=== PATIENT | female | born 1965 | race Caucasian/White ===

== ENCOUNTER → 2019-02-02 06:57 | Outpatient (CLI) | payer MEDICARE, OTHER, SELFPAY ==
[2019-02-02 07:27] LABS: Microscopic, Urine URINE MICROSCOPIC (MICROSCOPIC)
[2019-02-02 08:22] LABS: Appearance,Urine CLEAR (Clear); Bilirubin,Urine Negative (Negative); Blood, Urine 3+ (Negative); Color,Urine YELLOW (Yellow); Glucose,Urine (UA) Negative (Negative); Ketones,Urine Negative (Negative); Leukocyte Esterase,Urine TRACE (Negative); Nitrate,Urine Negative (Negative); PH,Urine 7.5 (5.0-8.5); Protein,Urine 2+ (Negative); Specific Gravity, Urine 1.015 (1.005-1.030); Urobilinogen,Urine 0.2 EU/dl (0.2)
[2019-02-02 08:43] LABS: Bacteria,Urine Trace /lpf; WBC,Urine Occasional #/hpf (0-3)
[2019-02-02 08:44] LABS: Squamous Epithelial Cell,Urine Occasional #/hpf (0-5)
[2019-02-02 09:21] LABS: Basophils % 0.2 % (0.1-2.0); Hematocrit 33.8 % (37.0-47.0); Hemoglobin 11.1 g/dL (12.2-16.2); Lymphocytes # 0.1 K/mm3 (0.7-4.5); Lymphocytes % 0.7 % (10-50); Mean Corpuscular HGB Conc 32.9 g/dL (31.8-35.4); Mean Corpuscular Hemoglobin 33.1 pg (27.0-31.2); Mean Corpuscular Volume 100.5 fl (81-99); Mean Platelet Volume 7.2 fl (7.4-10.4); Monocytes # 0.1 K/mm3 (0.1-1.0); Monocytes % 1.5 % (1.7-9.3); Neutrophils # 7.3 K/mm3 (1.8-7.8); Neutrophils % 97.5 % (37.0-80.0); Platelet Count 335 K/mm3 (142-424); Red Blood Count 3.37 M/mm3 (4.20-5.40); Red Cell Distribution Width 15.1 % (11.5-17.5); White Blood Count 7.5 K/mm3 (4.8-10.8)
[2019-02-02 09:32] LABS: Creatinine,Urine Random 107 mg/dL (20-320)
[2019-02-02 09:59] LABS: MANUAL DIFFERENTIAL MANUAL DIFFERENTIAL (MANUAL DIFF)
[2019-02-02 10:03] LABS: Alanine Aminotransferase 20 U/L (12-78); Albumin Level 3.2 gm/dL (3.4-5.0); Alkaline Phosphatase 91 U/L (46-116); Anion Gap 15.4 mEq/L (5-15); Aspartate Amino Transferase 11 U/L (15-37); Bilirubin,Total 0.4 mg/dL (0.2-1.0); Blood Urea Nitrogen 19 mg/dL (7-18); Calcium 8.8 mg/dL (8.5-10.1); Carbon Dioxide 33 mmol/L (21.0-32.0); Chloride 94 mmol/L (98-107); Estimated Glomerular Filt Rate 10 ml/min (>60); GFR (African American) 12 ML/MIN (>60); Globulin 3.2 gm/dl (1.3-3.2); Glucose 164 mg/dL (74-106); Magnesium 2.1 mg/dL (1.4-2.2); Phosphorous 5.4 mg/dL (2.4-4.9); Potassium 4.4 mmoL/L (3.5-5.1); Sodium 138 mmol/L (136-145); Total Protein,Serum 6.4 gm/dL (6.4-8.2)
[2019-02-02 11:15] LABS: Total Protein,Urine Random 283.3 mg/dL (0.0-11.9)
[2019-02-02 11:50] LABS: Lymphocytes % 2 % (10-50); Macrocytosis 1+; Neutrophils % 98 % (42-76); Platelet Estimate Normal; Total Cells Counted 100
[2019-02-02 11:51] LABS: Creatinine,Serum 4.57 mg/dL (0.55-1.02)
[2019-02-05 17:28] LABS: Tacrolimus (FK506), Blood 15.1 ng/mL (2.0-20.0)
== END ==
PROVIDERS: Visit Provider Internal Medicine
DX: Z94.0 Kidney transplant status (principal); R80.9 Proteinuria, unspecified; N39.0 Urinary tract infection, site not specified; E83.40 Disorders of magnesium metabolism, unspecified; E83.30 Disorder of phosphorus metabolism, unspecified
CPT/HCPCS: 36415; 80053; 80197; 81001; 82570; 83735; 84100; 84155; 85007; 85025

== ENCOUNTER → 2019-02-08 10:18 | Outpatient (CLI) | payer MEDICARE, OTHER, SELFPAY ==
[2019-02-08 10:24] LABS: Microscopic, Urine URINE MICROSCOPIC (MICROSCOPIC)
[2019-02-08 10:48] LABS: Appearance,Urine CLEAR (Clear); Bilirubin,Urine Negative (Negative); Blood, Urine 3+ (Negative); Color,Urine YELLOW (Yellow); Glucose,Urine (UA) Negative (Negative); Ketones,Urine Negative (Negative); Leukocyte Esterase,Urine TRACE (Negative); Nitrate,Urine Negative (Negative); Protein,Urine 2+ (Negative); Specific Gravity, Urine 1.015 (1.005-1.030); Urobilinogen,Urine 0.2 EU/dl (0.2)
[2019-02-08 11:09] LABS: RBC,Urine 50-100 #/hpf (0-3)
[2019-02-08 11:10] LABS: Bacteria,Urine Trace /lpf
[2019-02-08 11:18] LABS: Creatinine,Urine Random 72 mg/dL (20-320); Total Protein,Urine Random 109.6 mg/dL (0.0-11.9)
[2019-02-08 12:17] LABS: Alanine Aminotransferase 10 U/L (12-78); Albumin Level 3.4 gm/dL (3.4-5.0); Alkaline Phosphatase 84 U/L (46-116); Aspartate Amino Transferase 9 U/L (15-37); Basophils % 0.5 % (0.1-2.0); Bilirubin,Total 0.4 mg/dL (0.2-1.0); Blood Urea Nitrogen 53 mg/dL (7-18); Calcium 9.1 mg/dL (8.5-10.1); Carbon Dioxide 29 mmol/L (21.0-32.0); Chloride 96 mmol/L (98-107); Eosinophils % 0.4 % (0.1-12.0); Estimated Glomerular Filt Rate 7 ml/min (>60); GFR (African American) 9 ML/MIN (>60); Globulin 3.3 gm/dl (1.3-3.2); Glucose 168 mg/dL (74-106); Hematocrit 32.6 % (37.0-47.0); Hemoglobin 10.4 g/dL (12.2-16.2); Lymphocytes # 0.1 K/mm3 (0.7-4.5); Lymphocytes % 1.4 % (10-50); Magnesium 2.2 mg/dL (1.4-2.2); Mean Corpuscular HGB Conc 31.9 g/dL (31.8-35.4); Mean Corpuscular Hemoglobin 31.8 pg (27.0-31.2); Mean Corpuscular Volume 99.7 fl (81-99); Mean Platelet Volume 7.1 fl (7.4-10.4); Monocytes # 0.1 K/mm3 (0.1-1.0); Monocytes % 1.1 % (1.7-9.3); Neutrophils # 5.2 K/mm3 (1.8-7.8); Neutrophils % 96.6 % (37.0-80.0); Platelet Count 276 K/mm3 (142-424); Red Blood Count 3.27 M/mm3 (4.20-5.40); Red Cell Distribution Width 15.1 % (11.5-17.5); Sodium 138 mmol/L (136-145); Total Protein,Serum 6.7 gm/dL (6.4-8.2); White Blood Count 5.4 K/mm3 (4.8-10.8)
[2019-02-08 12:21] LABS: MANUAL DIFFERENTIAL MANUAL DIFFERENTIAL (MANUAL DIFF)
[2019-02-08 12:22] LABS: Creatinine,Serum 6.09 mg/dL (0.55-1.02)
[2019-02-08 14:24] LABS: Neutrophils % 100 % (42-76); Total Cells Counted 100
[2019-02-08 14:25] LABS: Platelet Estimate Normal; RBC Morphology Normal
[2019-02-13 08:17] LABS: Tacrolimus (FK506), Blood 12.4 ng/mL (2.0-20.0)
== END ==
PROVIDERS: Visit Provider Internal Medicine
DX: N39.0 Urinary tract infection, site not specified (principal); R80.9 Proteinuria, unspecified; E83.40 Disorders of magnesium metabolism, unspecified; E83.30 Disorder of phosphorus metabolism, unspecified; D63.1 Anemia in chronic kidney disease; Z51.81 Encounter for therapeutic drug level monitoring; Z79.899 Other long term (current) drug therapy; Z94.0 Kidney transplant status; N18.9 Chronic kidney disease, unspecified
CPT/HCPCS: 36415; 80053; 80197; 81001; 82570; 83735; 84100; 84155; 85007; 85025

== ENCOUNTER → 2019-02-15 08:56 | Outpatient (CLI) | payer MEDICARE, OTHER, SELFPAY ==
[2019-02-15 09:05] LABS: Microscopic, Urine URINE MICROSCOPIC (MICROSCOPIC)
[2019-02-15 09:51] LABS: Total Protein,Urine Random 103.5 mg/dL (0.0-11.9)
[2019-02-15 09:52] LABS: Appearance,Urine CLEAR (Clear); Bilirubin,Urine Negative (Negative); Blood, Urine 3+ (Negative); Color,Urine YELLOW (Yellow); Glucose,Urine (UA) Negative (Negative); Ketones,Urine Negative (Negative); Leukocyte Esterase,Urine Negative (Negative); Nitrate,Urine Negative (Negative); PH,Urine 5.5 (5.0-8.5); Protein,Urine 1+ (Negative); Specific Gravity, Urine 1.015 (1.005-1.030); Urobilinogen,Urine 0.2 EU/dl (0.2)
[2019-02-15 10:04] LABS: Bacteria,Urine Trace /lpf; Basophils % 0.7 % (0.1-2.0); Eosinophils % 0.9 % (0.1-12.0); Hematocrit 31.5 % (37.0-47.0); Hemoglobin 10.3 g/dL (12.2-16.2); Lymphocytes % 0.8 % (10-50); Mean Corpuscular HGB Conc 32.8 g/dL (31.8-35.4); Mean Corpuscular Hemoglobin 32.5 pg (27.0-31.2); Mean Corpuscular Volume 99.2 fl (81-99); Monocytes % 0.9 % (1.7-9.3); Neutrophils # 3.5 K/mm3 (1.8-7.8); Neutrophils % 96.6 % (37.0-80.0); Platelet Count 196 K/mm3 (142-424); RBC,Urine 50-100 #/hpf (0-3); Red Blood Count 3.18 M/mm3 (4.20-5.40); Red Cell Distribution Width 15.2 % (11.5-17.5); Squamous Epithelial Cell,Urine Occasional #/hpf (0-5); White Blood Count 3.7 K/mm3 (4.8-10.8)
[2019-02-15 10:13] LABS: MANUAL DIFFERENTIAL MANUAL DIFFERENTIAL (MANUAL DIFF)
[2019-02-15 10:49] LABS: Neutrophils % 99 % (42-76); Total Cells Counted 100
[2019-02-15 10:50] LABS: RBC Morphology Normal
[2019-02-15 10:51] LABS: Platelet Estimate Normal
[2019-02-15 11:28] LABS: Potassium 4.1 mmoL/L (3.5-5.1); Sodium 137 mmol/L (136-145)
[2019-02-15 11:29] LABS: Alanine Aminotransferase 10 U/L (12-78); Albumin Level 3.7 gm/dL (3.4-5.0); Albumin/Globulin Ratio 1.1 (1.1-1.8); Alkaline Phosphatase 77 U/L (46-116); Anion Gap 19.1 mEq/L (5-15); Aspartate Amino Transferase 10 U/L (15-37); Bilirubin,Total 0.4 mg/dL (0.2-1.0); Blood Urea Nitrogen 60 mg/dL (7-18); Carbon Dioxide 23 mmol/L (21.0-32.0); Chloride 99 mmol/L (98-107); Estimated Glomerular Filt Rate 10 ml/min (>60); GFR (African American) 13 ML/MIN (>60); Globulin 3.4 gm/dl (1.3-3.2); Glucose 191 mg/dL (74-106); Phosphorous 4.6 mg/dL (2.4-4.9); Total Protein,Serum 7.1 gm/dL (6.4-8.2)
[2019-02-15 11:34] LABS: Creatinine,Serum 4.41 mg/dL (0.55-1.02)
[2019-02-17 08:46] LABS: Creatinine,Urine Random 147 mg/dL (20-320)
[2019-02-17 19:58] LABS: Tacrolimus (FK506), Blood 11.1 ng/mL (2.0-20.0)
== END ==
PROVIDERS: Visit Provider Internal Medicine
DX: Z94.0 Kidney transplant status (principal); Z51.81 Encounter for therapeutic drug level monitoring; Z79.899 Other long term (current) drug therapy; N39.0 Urinary tract infection, site not specified; D63.1 Anemia in chronic kidney disease; R80.9 Proteinuria, unspecified; E83.40 Disorders of magnesium metabolism, unspecified; E83.30 Disorder of phosphorus metabolism, unspecified
CPT/HCPCS: 36415; 80053; 80197; 81001; 82570; 83735; 84100; 84155; 85007; 85025

== ENCOUNTER → 2019-03-01 11:41 | Outpatient (CLI) | payer MEDICARE, OTHER, SELFPAY ==
[2019-03-01 11:51] LABS: Microscopic, Urine URINE MICROSCOPIC (MICROSCOPIC)
[2019-03-01 12:24] LABS: Appearance,Urine CLEAR (Clear); Bilirubin,Urine Negative (Negative); Blood, Urine Negative (Negative); Color,Urine YELLOW (Yellow); Glucose,Urine (UA) Negative (Negative); Ketones,Urine Negative (Negative); Leukocyte Esterase,Urine Negative (Negative); Nitrate,Urine Negative (Negative); PH,Urine 5.5 (5.0-8.5); Protein,Urine TRACE (Negative); Urobilinogen,Urine 0.2 EU/dl (0.2)
[2019-03-01 12:26] LABS: Basophils % 0.3 % (0.1-2.0); Eosinophils % 0.2 % (0.1-12.0); Lymphocytes # 0.1 K/mm3 (0.7-4.5); Lymphocytes % 1.1 % (10-50); Mean Corpuscular HGB Conc 32.3 g/dL (31.8-35.4); Mean Corpuscular Hemoglobin 32.2 pg (27.0-31.2); Mean Corpuscular Volume 99.6 fl (81-99); Mean Platelet Volume 6.9 fl (7.4-10.4); Monocytes # 0.2 K/mm3 (0.1-1.0); Monocytes % 4.3 % (1.7-9.3); Neutrophils # 4.6 K/mm3 (1.8-7.8); Neutrophils % 94.1 % (37.0-80.0); Platelet Count 298 K/mm3 (142-424); Red Blood Count 2.81 M/mm3 (4.20-5.40); Red Cell Distribution Width 15.3 % (11.5-17.5); White Blood Count 4.9 K/mm3 (4.8-10.8)
[2019-03-01 12:27] LABS: MANUAL DIFFERENTIAL MANUAL DIFFERENTIAL (MANUAL DIFF)
[2019-03-01 12:31] LABS: Total Protein,Urine Random 48.5 mg/dL (0.0-11.9)
[2019-03-01 12:46] LABS: Bacteria,Urine Trace /lpf
[2019-03-01 12:52] LABS: Alanine Aminotransferase 9 U/L (12-78); Albumin Level 3.2 gm/dL (3.4-5.0); Albumin/Globulin Ratio 0.9 (1.1-1.8); Alkaline Phosphatase 89 U/L (46-116); Anion Gap 15.8 mEq/L (5-15); Aspartate Amino Transferase 7 U/L (15-37); Bilirubin,Total 0.3 mg/dL (0.2-1.0); Blood Urea Nitrogen 43 mg/dL (7-18); Calcium 8.5 mg/dL (8.5-10.1); Carbon Dioxide 23 mmol/L (21.0-32.0); Chloride 103 mmol/L (98-107); Creatinine,Serum 2.88 mg/dL (0.55-1.02); Estimated Glomerular Filt Rate 17 ml/min (>60); GFR (African American) 21 ML/MIN (>60); Globulin 3.5 gm/dl (1.3-3.2); Glucose 165 mg/dL (74-106); Magnesium 2.5 mg/dL (1.4-2.2); Phosphorous 2.5 mg/dL (2.4-4.9); Potassium 3.8 mmoL/L (3.5-5.1); Sodium 138 mmol/L (136-145); Total Protein,Serum 6.7 gm/dL (6.4-8.2)
[2019-03-01 14:18] LABS: Lymphocytes % 1 % (10-50); Monocytes % 3 % (2-9); Neutrophils % 96 % (42-76); Platelet Estimate Normal; RBC Morphology Normal; Total Cells Counted 100
[2019-03-02 14:03] LABS: Creatinine,Urine Random 110 mg/dL (20-320)
[2019-03-03 18:30] LABS: Tacrolimus (FK506), Blood 3.4 ng/mL (2.0-20.0)
== END ==
PROVIDERS: Visit Provider Internal Medicine
DX: D63.1 Anemia in chronic kidney disease (principal); N39.0 Urinary tract infection, site not specified; R80.9 Proteinuria, unspecified; E83.40 Disorders of magnesium metabolism, unspecified; E83.30 Disorder of phosphorus metabolism, unspecified; Z51.81 Encounter for therapeutic drug level monitoring; Z79.4 Long term (current) use of insulin
CPT/HCPCS: 36415; 80053; 80197; 81001; 82570; 83735; 84100; 84155; 85007; 85025

== ENCOUNTER → 2019-03-08 10:20 | Outpatient (CLI) | payer MEDICARE, OTHER, SELFPAY ==
[2019-03-08 11:11] LABS: Basophils % 0.3 % (0.1-2.0); Hemoglobin 8.8 g/dL (12.2-16.2); Lymphocytes % 7.8 % (10-50); Mean Corpuscular HGB Conc 32.5 g/dL (31.8-35.4); Mean Corpuscular Hemoglobin 30.7 pg (27.0-31.2); Mean Corpuscular Volume 94.4 fl (81-99); Monocytes # 0.1 K/mm3 (0.1-1.0); Monocytes % 11.4 % (1.7-9.3); Neutrophils # 0.3 K/mm3 (1.8-7.8); Neutrophils % 77.5 % (37.0-80.0); Platelet Count 230 K/mm3 (142-424); Red Blood Count 2.86 M/mm3 (4.20-5.40); Red Cell Distribution Width 15.5 % (11.5-17.5)
[2019-03-08 11:20] LABS: INR 1.12 (0.9-1.1); Prothrombin Time 11.5 seconds (9.4-11.8)
[2019-03-08 11:41] LABS: Activated Partial Thrombo Time 37.2 seconds (23.6-34.0)
[2019-03-08 12:18] LABS: White Blood Count 0.4 K/mm3 (4.8-10.8)
[2019-03-08 12:19] LABS: MANUAL DIFFERENTIAL MANUAL DIFFERENTIAL (MANUAL DIFF)
[2019-03-08 13:00] LABS: Alanine Aminotransferase 16 U/L (12-78); Albumin Level 2.7 gm/dL (3.4-5.0); Albumin/Globulin Ratio 0.7 (1.1-1.8); Alkaline Phosphatase 95 U/L (46-116); Anion Gap 21.2 mEq/L (5-15); Aspartate Amino Transferase 7 U/L (15-37); Bilirubin,Total 0.5 mg/dL (0.2-1.0); Blood Urea Nitrogen 36 mg/dL (7-18); Calcium 8.6 mg/dL (8.5-10.1); Carbon Dioxide 17 mmol/L (21.0-32.0); Chloride 102 mmol/L (98-107); Creatinine,Serum 2.59 mg/dL (0.55-1.02); Estimated Glomerular Filt Rate 19 ml/min (>60); GFR (African American) 23 ML/MIN (>60); Glucose 216 mg/dL (74-106); Magnesium 1.6 mg/dL (1.4-2.2); Phosphorous 2.6 mg/dL (2.4-4.9); Sodium 138 mmol/L (136-145); Total Protein,Serum 6.7 gm/dL (6.4-8.2)
[2019-03-08 13:10] LABS: Potassium 2.2 mmoL/L (3.5-5.1)
[2019-03-08 13:28] LABS: Lymphocytes % 4 % (10-50); Monocytes % 10 % (2-9); Neutrophils % 82 % (42-76); Total Cells Counted 50
[2019-03-08 13:29] LABS: Platelet Estimate Normal
[2019-03-10 23:09] LABS: Tacrolimus (FK506), Blood 6.4 ng/mL (2.0-20.0)
[2019-03-10 23:21] LABS: Miscellaneous Test EVEROLIMUS
== END ==
PROVIDERS: Visit Provider Student in an Organized Health Care Education/Training Program
DX: E11.9 Type 2 diabetes mellitus without complications (principal); Z51.81 Encounter for therapeutic drug level monitoring; Z79.01 Long term (current) use of anticoagulants; Z79.899 Other long term (current) drug therapy
CPT/HCPCS: 36415; 80053; 80197; 83735; 84100; 85007; 85025; 85610; 85730

== ENCOUNTER → 2019-03-09 11:01 | Outpatient (CLI) | payer MEDICARE, OTHER, SELFPAY ==
[2019-03-09 11:36] LABS: Basophils % 0.3 % (0.1-2.0); Eosinophils % 4.1 % (0.1-12.0); Hematocrit 27.9 % (37.0-47.0); Hemoglobin 9.3 g/dL (12.2-16.2); Lymphocytes # 0.1 K/mm3 (0.7-4.5); Lymphocytes % 8.7 % (10-50); Mean Corpuscular HGB Conc 33.3 g/dL (31.8-35.4); Mean Corpuscular Hemoglobin 31.2 pg (27.0-31.2); Mean Corpuscular Volume 93.7 fl (81-99); Monocytes # 0.1 K/mm3 (0.1-1.0); Monocytes % 16.7 % (1.7-9.3); Neutrophils # 0.6 K/mm3 (1.8-7.8); Neutrophils % 70.1 % (37.0-80.0); Platelet Count 235 K/mm3 (142-424); Red Blood Count 2.98 M/mm3 (4.20-5.40); Red Cell Distribution Width 15.6 % (11.5-17.5)
[2019-03-09 11:53] LABS: Alanine Aminotransferase 20 U/L (12-78); Albumin Level 2.7 gm/dL (3.4-5.0); Albumin/Globulin Ratio 0.6 (1.1-1.8); Alkaline Phosphatase 113 U/L (46-116); Anion Gap 20.3 mEq/L (5-15); Aspartate Amino Transferase 21 U/L (15-37); Bilirubin,Total 0.5 mg/dL (0.2-1.0); Blood Urea Nitrogen 35 mg/dL (7-18); Calcium 8.9 mg/dL (8.5-10.1); Carbon Dioxide 19 mmol/L (21.0-32.0); Chloride 100 mmol/L (98-107); Creatinine,Serum 2.75 mg/dL (0.55-1.02); Estimated Glomerular Filt Rate 18 ml/min (>60); GFR (African American) 22 ML/MIN (>60); Globulin 4.8 gm/dl (1.3-3.2); Glucose 187 mg/dL (74-106); Sodium 137 mmol/L (136-145); Total Protein,Serum 7.5 gm/dL (6.4-8.2)
[2019-03-09 11:55] LABS: MANUAL DIFFERENTIAL MANUAL DIFFERENTIAL (MANUAL DIFF); White Blood Count 0.8 K/mm3 (4.8-10.8)
[2019-03-09 13:06] LABS: Potassium 2.3 mmoL/L (3.5-5.1)
[2019-03-09 16:14] LABS: Lymphocytes % 4 % (10-50); Monocytes % 20 % (2-9); Neutrophils % 50 % (42-76); Total Cells Counted 50
[2019-03-09 16:15] LABS: Platelet Estimate Normal
[2019-03-09 16:16] LABS: Hypochromasia 1+
== END ==
PROVIDERS: Visit Provider Student in an Organized Health Care Education/Training Program
DX: Z94.0 Kidney transplant status (principal); E11.9 Type 2 diabetes mellitus without complications; D63.1 Anemia in chronic kidney disease
CPT/HCPCS: 36415; 80053; 85007; 85025

== ENCOUNTER → 2019-03-21 09:40 | Outpatient (CLI) | payer MEDICARE, OTHER, SELFPAY ==
[2019-03-21 09:42] LABS: Microscopic, Urine URINE MICROSCOPIC (MICROSCOPIC)
[2019-03-21 10:23] LABS: Appearance,Urine CLEAR (Clear); Bilirubin,Urine Negative (Negative); Blood, Urine TRACE-L (Negative); Color,Urine YELLOW (Yellow); Glucose,Urine (UA) Negative (Negative); Ketones,Urine Negative (Negative); Leukocyte Esterase,Urine Negative (Negative); Nitrate,Urine Negative (Negative); PH,Urine 6.5 (5.0-8.5); Protein,Urine 2+ (Negative); Urobilinogen,Urine 0.2 EU/dl (0.2)
[2019-03-21 11:01] LABS: Basophils % 0.1 % (0.1-2.0); Eosinophils % 0.2 % (0.1-12.0); Hematocrit 25.5 % (37.0-47.0); Lymphocytes # 0.2 K/mm3 (0.7-4.5); Lymphocytes % 1.1 % (10-50); Mean Corpuscular Hemoglobin 30.1 pg (27.0-31.2); Mean Platelet Volume 6.9 fl (7.4-10.4); Monocytes # 0.6 K/mm3 (0.1-1.0); Monocytes % 3.3 % (1.7-9.3); Neutrophils # 15.8 K/mm3 (1.8-7.8); Neutrophils % 95.2 % (37.0-80.0); Platelet Count 470 K/mm3 (142-424); Red Blood Count 2.63 M/mm3 (4.20-5.40); Red Cell Distribution Width 18.9 % (11.5-17.5); White Blood Count 16.6 K/mm3 (4.8-10.8)
[2019-03-21 11:28] LABS: Hemoglobin 7.9 g/dL (12.2-16.2)
[2019-03-21 11:29] LABS: MANUAL DIFFERENTIAL MANUAL DIFFERENTIAL (MANUAL DIFF)
[2019-03-21 11:37] LABS: Bacteria,Urine 1+ /lpf
[2019-03-21 12:20] LABS: Lymphocytes % 1 % (10-50); Monocytes % 4 % (2-9); Neutrophils % 95 % (42-76); Total Cells Counted 100
[2019-03-21 12:22] LABS: Anisocytosis 1+; Macrocytosis 1+; Platelet Estimate Slight Increase
[2019-03-21 15:15] LABS: Creatinine,Urine Random 84 mg/dL (20-320); Total Protein,Urine Random 93.7 mg/dL (0.0-11.9)
[2019-03-21 15:37] LABS: Alanine Aminotransferase 25 U/L (12-78); Albumin Level 2.9 gm/dL (3.4-5.0); Albumin/Globulin Ratio 0.9 (1.1-1.8); Alkaline Phosphatase 69 U/L (46-116); Anion Gap 15.6 mEq/L (5-15); Aspartate Amino Transferase 15 U/L (15-37); Bilirubin,Total 0.3 mg/dL (0.2-1.0); Blood Urea Nitrogen 32 mg/dL (7-18); Carbon Dioxide 26 mmol/L (21.0-32.0); Chloride 102 mmol/L (98-107); Creatinine,Serum 1.89 mg/dL (0.55-1.02); Estimated Glomerular Filt Rate 28 ml/min (>60); GFR (African American) 34 ML/MIN (>60); Globulin 3.2 gm/dl (1.3-3.2); Glucose 79 mg/dL (74-106); Magnesium 1.5 mg/dL (1.4-2.2); Phosphorous 3.4 mg/dL (2.4-4.9); Potassium 3.6 mmoL/L (3.5-5.1); Sodium 140 mmol/L (136-145); Total Protein,Serum 6.1 gm/dL (6.4-8.2)
== END ==
PROVIDERS: Visit Provider Internal Medicine
DX: Z94.0 Kidney transplant status (principal); R82.90 Unspecified abnormal findings in urine
CPT/HCPCS: 36415; 80053; 80197; 81001; 82570; 83735; 84100; 84155; 85007; 85025; 87086

== ENCOUNTER → 2019-03-30 08:33 | Outpatient (CLI) | payer MEDICARE, OTHER, SELFPAY ==
[2019-03-30 08:37] VITALS: BMI 22.8
[2019-03-30 10:08] LABS: Hematocrit 14.6 % (37.0-47.0)
[2019-03-30 10:09] LABS: Hemoglobin 4.2 g/dL (12.2-16.2)
--- NOTE | 2019-03-30 11:00 | PC.NURSE ---
0830-pt in infusion to receive type and cross for 2 units of PRBC's. multiple nurses attempted to stick pt for iv and unsuccessful even with ultrasound. lab able to get enough blood with butterfly needle for type and cross and comparison h/h. 0900-per sunny lua tech pt hgb 4.2 and hct 14.6. 1030-called [facility] physicians with the transplant services kidney disease program spoke with lucrecia lacey, told her the dilemma said she would call back after she spoke with dr. brianne calles. 1035-lucrecia lacey, rn called back per dr. brianne calles to have pt sent to ed for iv access or central line and transfuse one unit of prbc's, then transfer pt to [facility] in [place]. 1040-v/s bp 163/73 hr 80 rr 18 o2 sat 100% 1100-transfer pt to ed per wheelchair with jane bray. gave report to claudia bauer rn.
== END ==
PROVIDERS: Visit Provider Student in an Organized Health Care Education/Training Program
DX: Z94.0 Kidney transplant status; D63.1 Anemia in chronic kidney disease
CPT/HCPCS: 85014; 85018; 86850; G0463

== ENCOUNTER → 2019-04-06 09:07 | Outpatient (CLI) | payer MEDICARE, OTHER, SELFPAY ==
[2019-04-06 09:48] LABS: Basophils % 0.2 % (0.1-2.0); Eosinophils # 0.2 K/mm3 (0.0-0.4); Eosinophils % 3.2 % (0.1-12.0); Lymphocytes # 0.1 K/mm3 (0.7-4.5); Lymphocytes % 1.2 % (10-50); Mean Corpuscular HGB Conc 31.1 g/dL (31.8-35.4); Mean Corpuscular Hemoglobin 32.6 pg (27.0-31.2); Mean Corpuscular Volume 104.8 fl (81-99); Monocytes # 0.2 K/mm3 (0.1-1.0); Monocytes % 2.6 % (1.7-9.3); Neutrophils % 92.8 % (37.0-80.0); Platelet Count 202 K/mm3 (142-424); Red Blood Count 2.24 M/mm3 (4.20-5.40); Red Cell Distribution Width 18.9 % (11.5-17.5); White Blood Count 7.6 K/mm3 (4.8-10.8)
[2019-04-06 10:19] LABS: Hematocrit 23.5 % (37.0-47.0); Hemoglobin 7.3 g/dL (12.2-16.2)
[2019-04-06 10:20] LABS: MANUAL DIFFERENTIAL MANUAL DIFFERENTIAL (MANUAL DIFF)
[2019-04-06 10:39] LABS: Alanine Aminotransferase 17 U/L (12-78); Albumin Level 2.9 gm/dL (3.4-5.0); Albumin/Globulin Ratio 1.1 (1.1-1.8); Alkaline Phosphatase 60 U/L (46-116); Anion Gap 14.5 mEq/L (5-15); Aspartate Amino Transferase 5 U/L (15-37); Bilirubin,Total 0.4 mg/dL (0.2-1.0); Blood Urea Nitrogen 26 mg/dL (7-18); Calcium 8.1 mg/dL (8.5-10.1); Carbon Dioxide 23 mmol/L (21.0-32.0); Chloride 106 mmol/L (98-107); Estimated Glomerular Filt Rate 31 ml/min (>60); GFR (African American) 38 ML/MIN (>60); Globulin 2.7 gm/dl (1.3-3.2); Glucose 196 mg/dL (74-106); Magnesium 1.8 mg/dL (1.4-2.2); Phosphorous 2.4 mg/dL (2.4-4.9); Potassium 5.5 mmoL/L (3.5-5.1); Sodium 138 mmol/L (136-145); Total Protein,Serum 5.6 gm/dL (6.4-8.2)
[2019-04-06 13:49] LABS: Eosinophils % 3 % (0-3); Lymphocytes % 1 % (10-50); Monocytes % 2 % (2-9); Myelocytes % 4 (0-1); Neutrophils % 63 % (42-76); Nucleated Red Blood Cells 1; Total Cells Counted 100
[2019-04-06 13:56] LABS: Hypochromasia 2+; Macrocytosis 2+
[2019-04-06 13:57] LABS: Anisocytosis 2+; Platelet Estimate Normal; Tear Drop Cells 1+
[2019-04-08 18:20] LABS: Miscellaneous Test EVEROLIMUS
[2019-04-09 17:29] LABS: Tacrolimus (FK506), Blood 5.3 ng/mL (2.0-20.0)
== END ==
PROVIDERS: Visit Provider Internal Medicine
DX: D63.1 Anemia in chronic kidney disease (principal); Z94.0 Kidney transplant status; E83.40 Disorders of magnesium metabolism, unspecified; E83.30 Disorder of phosphorus metabolism, unspecified
CPT/HCPCS: 36415; 80053; 80197; 83735; 84100; 85007; 85025

== ENCOUNTER → 2019-04-07 08:35 | Outpatient (CLI) | payer MEDICARE, OTHER, SELFPAY ==
[2019-04-07 08:38] LABS: Microscopic, Urine URINE MICROSCOPIC (MICROSCOPIC)
[2019-04-07 09:01] LABS: Appearance,Urine CLEAR (Clear); Bilirubin,Urine Negative (Negative); Blood, Urine Negative (Negative); Color,Urine YELLOW (Yellow); Glucose,Urine (UA) 2+ (Negative); Ketones,Urine Negative (Negative); Leukocyte Esterase,Urine Negative (Negative); Nitrate,Urine Negative (Negative); Protein,Urine Negative (Negative); Urobilinogen,Urine 0.2 EU/dl (0.2)
[2019-04-07 09:42] LABS: Bacteria,Urine Trace /lpf; Squamous Epithelial Cell,Urine Occasional #/hpf (0-5)
[2019-04-07 09:52] LABS: Creatinine,Urine Random 35 mg/dL (20-320); Total Protein,Urine Random 29.4 mg/dL (0.0-11.9)
== END ==
PROVIDERS: Visit Provider Internal Medicine
DX: R80.9 Proteinuria, unspecified (principal); N39.0 Urinary tract infection, site not specified; D63.1 Anemia in chronic kidney disease; Z94.0 Kidney transplant status
CPT/HCPCS: 81001; 82570; 84155

== ENCOUNTER → 2019-04-13 09:04 | Outpatient (CLI) | payer MEDICARE, OTHER, SELFPAY ==
[2019-04-13 09:11] LABS: Microscopic, Urine URINE MICROSCOPIC (MICROSCOPIC)
[2019-04-13 10:09] LABS: Appearance,Urine CLEAR (Clear); Bilirubin,Urine Negative (Negative); Blood, Urine Negative (Negative); Color,Urine YELLOW (Yellow); Glucose,Urine (UA) 3+ (Negative); Ketones,Urine Negative (Negative); Leukocyte Esterase,Urine Negative (Negative); Nitrate,Urine Negative (Negative); Protein,Urine TRACE (Negative); Urobilinogen,Urine 0.2 EU/dl (0.2)
[2019-04-13 10:22] LABS: Bacteria,Urine Trace /lpf
[2019-04-13 10:31] LABS: Creatinine,Urine Random 39 mg/dL (20-320); Total Protein,Urine Random 27.2 mg/dL (0.0-11.9)
[2019-04-13 10:42] LABS: Eosinophils # 0.1 K/mm3 (0.0-0.4); Eosinophils % 21.9 % (0.1-12.0); Hematocrit 28.3 % (37.0-47.0); Hemoglobin 8.6 g/dL (12.2-16.2); Lymphocytes # 0.1 K/mm3 (0.7-4.5); Mean Corpuscular HGB Conc 30.5 g/dL (31.8-35.4); Mean Corpuscular Hemoglobin 32.7 pg (27.0-31.2); Mean Corpuscular Volume 107.1 fl (81-99); Monocytes % 7.9 % (1.7-9.3); Neutrophils # 0.2 K/mm3 (1.8-7.8); Neutrophils % 51.2 % (37.0-80.0); Platelet Count 231 K/mm3 (142-424); Red Blood Count 2.64 M/mm3 (4.20-5.40); Red Cell Distribution Width 17.6 % (11.5-17.5)
[2019-04-13 11:15] LABS: White Blood Count 0.4 K/mm3 (4.8-10.8)
[2019-04-13 11:17] LABS: MANUAL DIFFERENTIAL MANUAL DIFFERENTIAL (MANUAL DIFF)
[2019-04-13 11:21] LABS: Alanine Aminotransferase 20 U/L (12-78); Albumin Level 3.1 gm/dL (3.4-5.0); Albumin/Globulin Ratio 1.1 (1.1-1.8); Alkaline Phosphatase 76 U/L (46-116); Anion Gap 14.8 mEq/L (5-15); Aspartate Amino Transferase 10 U/L (15-37); Bilirubin,Total 0.6 mg/dL (0.2-1.0); Blood Urea Nitrogen 23 mg/dL (7-18); Calcium 8.7 mg/dL (8.5-10.1); Carbon Dioxide 24 mmol/L (21.0-32.0); Chloride 106 mmol/L (98-107); Creatinine,Serum 1.65 mg/dL (0.55-1.02); Estimated Glomerular Filt Rate 33 ml/min (>60); GFR (African American) 39 ML/MIN (>60); Globulin 2.8 gm/dl (1.3-3.2); Glucose 83 mg/dL (74-106); Magnesium 1.7 mg/dL (1.4-2.2); Phosphorous 2.4 mg/dL (2.4-4.9); Potassium 5.8 mmoL/L (3.5-5.1); Sodium 139 mmol/L (136-145); Total Protein,Serum 5.9 gm/dL (6.4-8.2)
[2019-04-13 13:50] LABS: Eosinophils % 22 % (0-3); Hypochromasia 1+; Lymphocytes % 26 % (10-50); Macrocytosis 2+; Monocytes % 2 % (2-9); Myelocytes % 2 (0-1); Neutrophils % 16 % (42-76); Platelet Estimate Normal; Total Cells Counted 50
[2019-04-16 17:26] LABS: Tacrolimus (FK506), Blood 4.1 ng/mL (2.0-20.0)
== END ==
PROVIDERS: Visit Provider Internal Medicine
DX: Z79.899 Other long term (current) drug therapy (principal); Z94.0 Kidney transplant status; D63.1 Anemia in chronic kidney disease; R80.9 Proteinuria, unspecified; E83.40 Disorders of magnesium metabolism, unspecified; E83.30 Disorder of phosphorus metabolism, unspecified; Z51.81 Encounter for therapeutic drug level monitoring
CPT/HCPCS: 36415; 80053; 80197; 81001; 82570; 83735; 84100; 84155; 85007; 85025

== ENCOUNTER 2019-04-16 09:48 | Outpatient (CLI) | payer MEDICARE, SELFPAY ==
[2019-04-16 10:25] VITALS: BP 118/64; PULSE 77; RESP 18; TEMP 36.9; O2SAT 97
[2019-04-16 10:30] VITALS: BP 118/65; PULSE 70; RESP 18; TEMP 36.9; O2SAT 97
== END 2019-04-16 11:24 | disposition home or self-care (01) ==
LOC: INF 09:53
PROVIDERS: Visit Provider Internal Medicine
DX: Z94.0 Kidney transplant status (principal); E83.40 Disorders of magnesium metabolism, unspecified; E83.30 Disorder of phosphorus metabolism, unspecified; D63.1 Anemia in chronic kidney disease; R80.9 Proteinuria, unspecified; N39.0 Urinary tract infection, site not specified; Z51.81 Encounter for therapeutic drug level monitoring; Z79.899 Other long term (current) drug therapy
CPT/HCPCS: 96372; J1442

== ENCOUNTER → 2019-04-17 10:07 | Outpatient (CLI) | payer MEDICARE, OTHER, SELFPAY ==
[2019-04-17 10:30] VITALS: BP 94/58; PULSE 79; RESP 16; TEMP 36.4; O2SAT 100; BMI 21.2
[2019-04-17 10:58] VITALS: BP 98/68; PULSE 71; RESP 16; TEMP 36.6; O2SAT 100
== END ==
PROVIDERS: PCP Internal Medicine; Visit Provider Internal Medicine
DX: Z94.0 Kidney transplant status (principal); D63.1 Anemia in chronic kidney disease; N39.0 Urinary tract infection, site not specified
CPT/HCPCS: 96372; J1442

== ENCOUNTER 2019-04-18 10:15 | Outpatient (CLI) | payer MEDICARE, OTHER, SELFPAY ==
[2019-04-18 10:15] VITALS: BMI 21.2
[2019-04-18 10:54] LABS: Basophils % 1.5 % (0.1-2.0); Eosinophils # 0.1 K/mm3 (0.0-0.4); Eosinophils % 7.1 % (0.1-12.0); Hematocrit 31.7 % (37.0-47.0); Hemoglobin 9.9 g/dL (12.2-16.2); Lymphocytes # 0.1 K/mm3 (0.7-4.5); Lymphocytes % 5.2 % (10-50); Mean Corpuscular HGB Conc 31.3 g/dL (31.8-35.4); Mean Corpuscular Hemoglobin 32.7 pg (27.0-31.2); Mean Corpuscular Volume 104.3 fl (81-99); Monocytes # 0.1 K/mm3 (0.1-1.0); Monocytes % 9.6 % (1.7-9.3); Neutrophils # 0.7 K/mm3 (1.8-7.8); Neutrophils % 76.5 % (37.0-80.0); Platelet Count 307 K/mm3 (142-424); Red Blood Count 3.04 M/mm3 (4.20-5.40); Red Cell Distribution Width 16.8 % (11.5-17.5)
[2019-04-18 10:56] LABS: White Blood Count 0.9 K/mm3 (4.8-10.8)
[2019-04-18 10:57] LABS: MANUAL DIFFERENTIAL MANUAL DIFFERENTIAL (MANUAL DIFF)
[2019-04-18 10:58] VITALS: BP 132/68; PULSE 77; RESP 18; TEMP 36.4; O2SAT 100
[2019-04-18 11:06] LABS: Alanine Aminotransferase 23 U/L (12-78); Albumin Level 2.6 gm/dL (3.4-5.0); Albumin/Globulin Ratio 0.7 (1.1-1.8); Alkaline Phosphatase 73 U/L (46-116); Anion Gap 15.8 mEq/L (5-15); Aspartate Amino Transferase 11 U/L (15-37); Bilirubin,Total 0.6 mg/dL (0.2-1.0); Blood Urea Nitrogen 40 mg/dL (7-18); Calcium 8.7 mg/dL (8.5-10.1); Carbon Dioxide 21 mmol/L (21.0-32.0); Chloride 105 mmol/L (98-107); Creatinine Clearance Estimated 35 mL/min (50-200); Creatinine,Serum 1.89 mg/dL (0.55-1.02); Estimated Glomerular Filt Rate 28 ml/min (>60); GFR (African American) 34 ML/MIN (>60); Globulin 3.5 gm/dl (1.3-3.2); Glucose 97 mg/dL (74-106); Magnesium 1.5 mg/dL (1.4-2.2); Potassium 4.8 mmoL/L (3.5-5.1); Sodium 137 mmol/L (136-145); Total Protein,Serum 6.1 gm/dL (6.4-8.2)
[2019-04-18 11:13] LABS: Phosphorous 1.6 mg/dL (2.4-4.9)
[2019-04-18 12:01] LABS: Eosinophils % 10 % (0-3); Lymphocytes % 6 % (10-50); Monocytes % 8 % (2-9); Myelocytes % 22 (0-1); Neutrophils % 6 % (42-76); Total Cells Counted 50
[2019-04-18 12:03] LABS: Hypochromasia 2+; Macrocytosis 2+
[2019-04-18 12:04] LABS: Anisocytosis 1+; Platelet Estimate Slight Increase
[2019-04-20 14:08] LABS: Tacrolimus (FK506), Blood 8.7 ng/mL (2.0-20.0)
== END 2019-04-18 11:00 | disposition home or self-care (01) ==
LOC: INF 10:18
PROVIDERS: Visit Provider Internal Medicine
DX: Z94.0 Kidney transplant status (principal); D63.1 Anemia in chronic kidney disease; R80.9 Proteinuria, unspecified; N39.0 Urinary tract infection, site not specified; E83.40 Disorders of magnesium metabolism, unspecified; E83.30 Disorder of phosphorus metabolism, unspecified; Z79.899 Other long term (current) drug therapy; Z51.81 Encounter for therapeutic drug level monitoring
CPT/HCPCS: 36415; 80053; 80197; 83735; 84100; 85007; 85025; 96372; J1442

== ENCOUNTER → 2019-04-19 11:31 | Outpatient (CLI) | payer MEDICARE, OTHER, SELFPAY ==
[2019-04-19 11:35] LABS: Microscopic, Urine URINE MICROSCOPIC (MICROSCOPIC)
[2019-04-19 13:04] LABS: Appearance,Urine CLEAR (Clear); Bilirubin,Urine Negative (Negative); Blood, Urine Negative (Negative); Color,Urine YELLOW (Yellow); Glucose,Urine (UA) 3+ (Negative); Ketones,Urine Negative (Negative); Leukocyte Esterase,Urine Negative (Negative); Nitrate,Urine Negative (Negative); Protein,Urine Negative (Negative); Urobilinogen,Urine 0.2 EU/dl (0.2)
[2019-04-19 13:21] LABS: Bacteria,Urine Trace /lpf
[2019-04-19 14:10] LABS: Creatinine,Urine Random 40 mg/dL (20-320); Total Protein,Urine Random 25.3 mg/dL (0.0-11.9)
== END ==
PROVIDERS: Visit Provider Internal Medicine
DX: Z94.0 Kidney transplant status (principal); D63.1 Anemia in chronic kidney disease; R80.9 Proteinuria, unspecified; N39.0 Urinary tract infection, site not specified; E83.40 Disorders of magnesium metabolism, unspecified; E83.30 Disorder of phosphorus metabolism, unspecified; Z79.899 Other long term (current) drug therapy; Z51.81 Encounter for therapeutic drug level monitoring
CPT/HCPCS: 81001; 82570; 84155

== ENCOUNTER 2019-04-23 16:10 | Emergency (ER) | payer MEDICARE, SELFPAY ==
[2019-04-23] VITALS (9 sets, daily range): BP systolic 98–127; BP diastolic 45–83; PULSE 72–95; RESP 16–18; TEMP 36.6–36.9; O2SAT 95–100; BMI 21.2
--- NOTE | 2019-04-23 16:13 | CT_ITS ---
CT abdomen pelvis wo con CLINICAL INDICATION: Posttraumatic pain, fall with injury and pain ITS.REASON: trauma ORDERING PHYSICIAN: Kenneth Lemus MD PATIENT AGE: 53 years COMPARISON: 07/30/2018 TECHNIQUE: Axial images obtained with sagittal and coronal reformats. All CT scans at the facility use one or more dose reduction, viz: automated exposure control, ma/kV adjustment per patient size (including targeted exams where dose is matched to indication, i.e. head), or iterative reconstruction technique. PROCEDURE: Oral Contrast: None IV Contrast: None . FINDINGS: Solid organ evaluation is limited without IV contrast. Groundglass densities noted in the right lower lobe and may be due to pneumonitis. Subpleural opacity is present in the right lower lobe laterally measuring 2.5 x 1 cm. Oval peripheral consolidation is present in the left lower lobe measuring 2.8 x 1.6 and 1.5 cm as well as additional parenchymal opacity left lower lobe posteriorly 1.5 cm. There are other densities in the left lower lobe posteriorly posterior costophrenic sulcus measuring 10 mm. Small cystic areas noted in the right middle lobe with fibrotic changes peripheral to this region. The liver, spleen, and pancreas have an unremarkable unenhanced appearance. Postcholecystectomy change There are postsurgical changes of the stomach with thickening of the body and cardia portion of the stomach. There is been prior gastric sleeve surgery. Left adrenal gland is somewhat prominent as before. There is diffuse vascular calcification. There is a horseshoe kidney. No hydronephrosis or ureteral calculi. There are postsurgical changes of the cecum and ascending colon. The appendix is not identified presumed surgically absent. There is a right lower quadrant renal transplant in the right iliac fossa which has been placed since 07/30/2018. No pelvic mass is evident. Fluid density is present in the perianal region on both sides right more so than left measuring up to 4 cm x 3 cm on the right and 2 x 1.57 m on the left. 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 IMPRESSION: 1. Limited study, evaluation of the abdomen and pelvis without IV contrast. 2. Bilateral lower lung zone parenchymal opacities. There is diffuse groundglass density in the right lower lobe consistent with pneumonitis. Focal subpleural opacity in the right lower lobe focal parenchymal opacities in the left lower lobe are present and could be inflammatory/infectious or neoplastic/metastatic disease. 3. Diffuse vascular calcifications with multiple postsurgical changes and a horseshoe kidney. Prior right pelvic renal transplant 4. There is fluid density in the perianal region on both sides and could represent perianal cysts or even abscess. Please correlate with clinical findings.
--- NOTE | 2019-04-23 16:14 | CT_ITS ---
CT lumbar spine wo con INDICATION: Low back pain following injury ITS.REASON: trauma ORDERING PHYSICIAN: Kenneth Lemus MD PATIENT AGE: 53 years COMPARISON: None TECHNIQUE: Axial images obtained with sagittal and coronal reformats. All CT scans at the facility use one or more dose reduction, viz: automated exposure control, ma/kV adjustment per patient size (including targeted exams where dose is matched to indication, i.e. head), or iterative reconstruction technique. FINDINGS: Normal alignment. No fracture or dislocation. No lytic or blastic change. Mild bulging disc L4-L5 and L5-S1 with mild facet arthritic changes at L5-S1. There is sclerosis of the SI joints on both sides and there are mild changes in the hips. There are multiple other findings within the abdomen and pelvis which are described in the CT abdomen pelvis performed at same setting. Please see that exam for description. IMPRESSION: 1. No acute fracture. 2. Mild lumbar spondylosis
--- NOTE | 2019-04-23 16:15 | [facility].EDGENADL ---
ED Disposition <Kenneth Lemus - Last Filed: 04/23/19 19:39> Condition on Discharge: Serious - Critical Care Critical Care Time: Yes Total Critical Care Time: 45 Vital system(s) involved:: Metabolic Failure My critical care processes included: Assessment & monitoring of V/S, Initial and Re-exams, Data Review/Interpretation, Coordinating Care, Medication Orders and management, Documentation <Sam Andrews - Last Filed: 04/24/19 00:38> Clinical Impression: Acute kidney injury, Hyperkalemia, Hyperglycemia, Perianal cyst, Lung mass Altered mental status Qualifiers: Altered mental status type: unspecified Qualified Code(s): R41.82 - Altered mental status, unspecified Fall Qualifiers: Encounter type: initial encounter Qualified Code(s): W19.XXXA - Unspecified fall, initial encounter Contusion of right hip Qualifiers: Encounter type: initial encounter Qualified Code(s): S70.01XA - Contusion of right hip, initial encounter Disposition: Xfer Short-Term Hosp Referrals: Provider,Referral, MD [Primary Care Provider] - Forms: Transfer Record - ED Attestation: On 04/23/19, the high probability of a clinically significant, sudden or life threatening deterioration of the following system(s) required my full and direct attention, intervention and personal management. The time I documented below is in addition to time spent performing reported procedures but includes the following listed in this critical care notation. Medical Decision Making - Lab Data Result diagrams: 04/23/19 17:15 04/23/19 17:15 <Kenneth Lemus - Last Filed: 04/23/19 19:39> - Bar Inquiry Pt receiving controlled substance: No - Lab Data Result diagrams: 04/23/19 17:15 04/23/19 22:30 - CT Data CT Scan: Head Time Received: 22:[address] Reviewed: Yes: I have reviewed the patient's CT results - Physician Consults Physician Consulted: Galindo Time: 21:45 Reason -: Admission Comment/Response: Prefers that patient be transferred to higher level of care. Discussed with patient and . They prefer [facility] in [place]. Additional Consult: [facility] transplant [facility] Time: 22:15 Reason -: Transfer to another facilty Comment/Response: Accepts patient. Advised that we will not be able to have ground transport until 8 AM. Discussed transport mechanism. He does not feel helicopter is needed at this point, but agrees with transfer for admission there. He is okay with 8 AM transfer. Advised that I will recheck labs to ensure that potassium and blood sugar are improving. Additional Consult: [facility] Time: 23:13 Reason -: Transfer to another facilty Comment/Response: Notified of worsening potassium and renal function despite treatment. Will fly by helicopter to [facility]. He accepts transfer. <Sam Andrews - Last Filed: 04/24/19 00:38> Vital Signs: 04/23/19 16:11 04/23/19 17:10 04/23/19 17:38 Temperature 97.9 F Temperature Source Oral Pulse Rate Pulse Rate [Left Radial] 85 84 72 Respiratory Rate 18 Blood Pressure Blood Pressure [Right Arm] 113/58 L 113/58 L 127/75 Blood Pressure Mean [Right Arm] 76 76 92 Blood Pressure Source [Right Arm] Automatic Cuff Blood Pressure Position [Right Arm] Sitting 02 Sat by Pulse Oximetry 100 95 99 Oxygen Delivery Method Room Air 04/23/19 18:00 04/23/19 21:16 04/23/19 21:17 Temperature Temperature Source Pulse Rate 78 78 Pulse Rate [Left Radial] 76 Respiratory Rate Blood Pressure Blood Pressure [Right Arm] 124/68 Blood Pressure Mean [Right Arm] 86 Blood Pressure Source [Right Arm] Blood Pressure Position [Right Arm] 02 Sat by Pulse Oximetry 96 Oxygen Delivery Method 04/23/19 21:56 04/23/19 22:00 04/23/19 23:54 Temperature 98.0 F 98.4 F Temperature Source Oral Oral Pulse Rate Pulse Rate [Left Radial] 86 85 95 H Respiratory Rate 16 17 16 Blood Pressure Blood Pressure [Right Arm] 98/45 L 114/82 12
--- NOTE | 2019-04-23 16:39 | PC.NURSE ---
pt gone to ct
[2019-04-23 17:25] LABS: Basophils # 0.1 K/mm3 (0-0.2); Basophils % 2.4 % (0.1-2.0); Eosinophils % 0.8 % (0.1-12.0); Hematocrit 31.7 % (37.0-47.0); Hemoglobin 9.9 g/dL (12.2-16.2); Lymphocytes # 0.1 K/mm3 (0.7-4.5); Lymphocytes % 2.6 % (10-50); Mean Corpuscular HGB Conc 31.1 g/dL (31.8-35.4); Mean Corpuscular Hemoglobin 31.3 pg (27.0-31.2); Mean Corpuscular Volume 100.8 fl (81-99); Mean Platelet Volume 7.5 fl (7.4-10.4); Monocytes # 0.1 K/mm3 (0.1-1.0); Monocytes % 2.7 % (1.7-9.3); Neutrophils # 3.7 K/mm3 (1.8-7.8); Neutrophils % 91.6 % (37.0-80.0); Platelet Count 279 K/mm3 (142-424); Red Blood Count 3.15 M/mm3 (4.20-5.40)
[2019-04-23 17:28] LABS: MANUAL DIFFERENTIAL MANUAL DIFFERENTIAL (MANUAL DIFF)
[2019-04-23 17:30] LABS: Amphetamine/Metha Screen,Urine Negative ng/mL (<1000); Barbiturates Screen,Urine Negative ng/mL (<200); Benzodiazepines Screen,Urine Negative ng/mL (<200); Cannabinoid Screen,Urine Negative ng/mL (<50); Cocaine Screen,Urine Negative ng/mL (<300); Methadone Screen,Urine Negative ng/mL (<300); Opiate Screen,Urine Positive ng/mL (<300); Phencyclidine Screen,Urine Negative ng/mL (<25)
[2019-04-23 17:44] LABS: Alanine Aminotransferase 46 U/L (12-78); Albumin Level 1.8 gm/dL (3.4-5.0); Albumin/Globulin Ratio 0.5 (1.1-1.8); Alkaline Phosphatase 76 U/L (46-116); Anion Gap 17.1 mEq/L (5-15); Aspartate Amino Transferase 53 U/L (15-37); Bilirubin,Total 0.6 mg/dL (0.2-1.0); Blood Urea Nitrogen 66 mg/dL (7-18); Calcium 7.7 mg/dL (8.5-10.1); Carbon Dioxide 20 mmol/L (21.0-32.0); Chloride 94 mmol/L (98-107); Creatinine Clearance Estimated 25 mL/min (50-200); Creatinine,Serum 2.59 mg/dL (0.55-1.02); Estimated Glomerular Filt Rate 19 ml/min (>60); GFR (African American) 23 ML/MIN (>60); Globulin 3.4 gm/dl (1.3-3.2); Sodium 125 mmol/L (136-145); Total Protein,Serum 5.2 gm/dL (6.4-8.2); Troponin I < 0.02 ng/ml (0.00-0.06)
[2019-04-23 17:46] LABS: Ethyl Alcohol 0 mg/dL (0-99); Glucose 431 mg/dL (74-106); Potassium 6.1 mmoL/L (3.5-5.1)
--- NOTE | 2019-04-23 17:46 | PC.NURSE ---
notified of critical labs
[2019-04-23 17:56] LABS: Lymphocytes % 18 % (10-50); Monocytes % 21 % (2-9); Neutrophils % 49 % (42-76); Nucleated Red Blood Cells 1; Platelet Estimate Normal; Total Cells Counted 100
[2019-04-23 17:57] LABS: Helmet Cells 1+; Tear Drop Cells 1+
--- NOTE | 2019-04-23 18:18 | XR_ITS ---
XR chest portable HISTORY: Abnormal CT scan, pneumonia ITS.REASON: r/o pneumonia ORDERING PHYSICIAN: Kenneth Lemus MD PATIENT AGE: 53 years COMPARISON: None FINDINGS: The cardiomediastinal silhouette and pulmonary vascularity are within normal limits. There is an oval area of increased density in the left lower lung zone measuring 2.8 x 2 cm corresponding to one of the areas of parenchymal opacity on the CT scan of the abdomen. There is an additional 8 mm nodule in the left midlung laterally. The patchy groundglass density in the right lower lobe is below limits of resolution for the chest radiograph. There are degenerative changes in the shoulders. IMPRESSION: 2.8 x 2 cm oval opacity left lower lobe which could be due to an area of pneumonia or neoplasm. Follow-up chest CT suggested suggested following adequate treatment for pneumonia.
--- NOTE | 2019-04-23 20:25 | CT_ITS ---
CT head/brain wo con HISTORY: Altered mental status, altered level of consciousness, confusion largest dimension ITS.REASON: AMS ORDERING PHYSICIAN: Sam Andrews MD PATIENT AGE: 53 years COMPARISON: None TECHNIQUE: Axial images obtained without contrast. Brain and bone windows reviewed. All CT scans at the facility use one or more dose reduction, viz: automated exposure control, ma/kV adjustment per patient size (including targeted exams where dose is matched to indication, i.e. head), or iterative reconstruction technique. FINDINGS: No midline shift, mass effect, intracranial hemorrhage, hydrocephalus, or extra-axial fluid collection is evident. The calvarium has an unremarkable appearance. No mastoid effusion. No sinus air-fluid levels.. There is mild mucosal thickening of left maxillary sinus IMPRESSION: No acute intracranial findings
--- NOTE | 2019-04-23 20:28 | XR_ITS ---
XR hip RT 2-3V w/pelvis HISTORY: Pain following injury ITS.REASON: fall ORDERING PHYSICIAN: Sam Andrews MD PATIENT AGE: 53 years COMPARISON: None FINDINGS: No fracture or dislocation is evident. Minimal osteoarthritic changes are noted. Surgical clips are present in the right hemipelvis and there is a vascular stent in the thigh. IMPRESSION: No acute finding.
[2019-04-23 20:50] LABS: Anion Gap 17.2 mEq/L (5-15); Blood Urea Nitrogen 69 mg/dL (7-18); Calcium 8.1 mg/dL (8.5-10.1); Carbon Dioxide 21 mmol/L (21.0-32.0); Chloride 94 mmol/L (98-107); Creatine Kinase 94 U/L (26-192); Creatinine Clearance Estimated 26 mL/min (50-200); Creatinine,Serum 2.55 mg/dL (0.55-1.02); Estimated Glomerular Filt Rate 20 ml/min (>60); GFR (African American) 24 ML/MIN (>60); Glucose 398 mg/dL (74-106); Sodium 126 mmol/L (136-145)
[2019-04-23 20:52] LABS: Potassium 6.2 mmoL/L (3.5-5.1)
[2019-04-23 21:17] LABS: Acetaminophen 0.9 ug/mL (10-30)
--- NOTE | 2019-04-23 21:53 | PC.NURSE ---
calling [facility] per mds request.
[2019-04-23 22:58] LABS: Anion Gap 20.4 mEq/L (5-15); Blood Urea Nitrogen 69 mg/dL (7-18); Calcium 7.9 mg/dL (8.5-10.1); Carbon Dioxide 18 mmol/L (21.0-32.0); Chloride 94 mmol/L (98-107); Creatinine Clearance Estimated 25 mL/min (50-200); Creatinine,Serum 2.64 mg/dL (0.55-1.02); Estimated Glomerular Filt Rate 19 ml/min (>60); GFR (African American) 23 ML/MIN (>60); Glucose 376 mg/dL (74-106); Sodium 126 mmol/L (136-145)
[2019-04-23 22:59] LABS: Potassium 6.4 mmoL/L (3.5-5.1)
--- NOTE | 2019-04-23 23:28 | PC.NURSE ---
took pt's medication and clothing home with him.
[2019-04-24 00:29] VITALS: BP 135/93; PULSE 86; RESP 16; TEMP 36.9; O2SAT 100
[2019-04-24 02:21] LABS: Microscopic, Urine URINE MICROSCOPIC (MICROSCOPIC)
[2019-04-24 02:23] LABS: Appearance,Urine CLEAR (Clear); Bilirubin,Urine Negative (Negative); Blood, Urine Negative (Negative); Color,Urine YELLOW (Yellow); Glucose,Urine (UA) 3+ (Negative); Ketones,Urine Negative (Negative); Leukocyte Esterase,Urine Negative (Negative); Nitrate,Urine Negative (Negative); PH,Urine 5.5 (5.0-8.5); Protein,Urine TRACE (Negative); Urobilinogen,Urine 0.2 EU/dl (0.2)
[2019-04-24 02:26] LABS: Amorphous Sediment,Urine 3+ /lpf
== END 2019-04-24 00:35 | disposition short-term general hospital (02) ==
PROVIDERS: Emergency Medicine Emergency Medical Services; Emergency Provider Emergency Medicine
DX: N17.9 Acute kidney failure, unspecified (principal); E87.5 Hyperkalemia; S70.01XA Contusion of right hip, initial encounter; K62.89 Other specified diseases of anus and rectum; R91.8 Other nonspecific abnormal finding of lung field; W01.0XXA Fall on same level from slipping, tripping and stumbling without subsequent striking against object, initial encounter; Y92.019 Unspecified place in single-family (private) house as the place of occurrence of the external cause
CPT/HCPCS: 70450; 71045; 72131; 73502; 74176; 80048; 80053; 80305; 80329; 81001; 82550; 84484; 85007; 85025; 93005; 96365; 96366; 96374; 96375; 96376; 99285